=== PATIENT | male | born 1980 | race Caucasian/White ===

== ENCOUNTER 2025-02-07 15:05 | Emergency (ER) | payer SELFPAY ==
[2025-02-07 15:07] VITALS: BP 143/86; PULSE 64; RESP 18; TEMP 36.5; O2SAT 100
--- NOTE | 2025-02-07 15:09 | ED_ITS ---
HPI - Male Genitourinary General Chief complaint: Urogenital-Male Stated complaint: L back pain hx kidney stones Focused HPI: 44 old male presents ER gradual onset of flank pain. States pain began yesterday and has worsened today. States the pain radiates into his left pelvic area. Pain is associated with nausea. His remote history of kidney stones. Denies any difficulty voiding. Denies fevers. GENERAL: Well-appearing, well-nourished, and in acute distress. HEAD: Normocephalic, atraumatic. CHEST: Clear to auscultation. No respiratory distress. HEART: Regular rate and rhythm. NEURO: Alert and oriented x3. Patient screened in triage and initial orders placed. Additional care and disposition to be based upon diagnostic testing and treatment. Related Data Allergies Allergy/AdvReac Type Severity Reaction Status Date / Time codeine Allergy Unknown Verified 12/06/16 05:30 Course Vital Signs Vital signs: Vital Signs Temperature 36.5 C 02/07/25 15:07 Pulse Rate 64 02/07/25 15:07 Respiratory Rate 18 02/07/25 15:07 Blood Pressure 143/86 H 02/07/25 15:07 Pulse Oximetry 100 02/07/25 15:07 Oxygen Delivery Room Air 02/07/25 15:07 Temperature 36.5 C 02/07/25 15:07 Pulse Rate 64 02/07/25 15:07 Respiratory Rate 18 02/07/25 15:07 Blood Pressure 143/86 H 02/07/25 15:07 Pulse Oximetry 100 02/07/25 15:07 Oxygen Delivery Room Air 02/07/25 15:07 Discharge Plan Discharge Clinical Impression: Acute left flank pain Patient Disposition: Elopement After Seen by Prov Patient Language: Malay Follow-up/Referrals: PHYSICIAN,OPTICAL ENGINEERING TECHNICIAN [Primary Care Provider, Internal Medicine]
--- OUTSIDE RECORDS SUMMARY | 2025-02-07 15:45 | XMS_ITS | Clinical Summary ---
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 Ok to use alternative Pro-Air or Ventolin HFA. 8.5 Gram 5 Active benzonatate (TESSALON) 200 mg capsuleIndicati ons:Acute cough Take 1 Capsule (200 mg) by mouth 3 times daily as needed for Cough. 30 Capsule 5 Active Active Problems No known active problems Encounters Date Type Department Care Team Description 11/30/2024 External Device Data [facility] Provider, Abstract 11/30/2024 External Device Data [facility] Provider, Abstract 11/30/2024 External Device Data [facility] Provider, Abstract 11/24/2024 3:45 PM CDT Ancillary Procedure [facility] [address], [place] [id number] Lucy Dove, BEN Respiratory crackles at left lung base; Acute cough 11/24/2024 3:30 PM CDT Office Visit [facility] [address] [place] [id number] Lucy Dove, BEN Pneumonia of left lower lobe due to infectious organism (Primary Dx); Respiratory crackles at left lung base; Acute cough from Last 3 Months Social History Tobacco Use Types Packs/Day Years Used Date Smoking Tobacco: Former Cigarettes Smokeless Tobacco: Never Tobacco Cessation:Counseling Given: Not Answered Sex and Gender Information Value Date Recorded Sex Assigned at Not on file 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 Gender Identity Not on file Sexual Orientation Not on file Last Filed Vital Signs Vital Sign Reading Time Taken Comments Blood Pressure 134/83 11/24/2024 3:27 PM CDT Pulse 88 11/24/2024 3:27 PM CDT Temperature 37 C (98.6 F) 11/24/2024 3:27 PM CDT Respiratory Rate 16 11/24/2024 3:27 PM CDT Oxygen Saturation 96% 11/24/2024 3:27 PM CDT Inhaled Oxygen Concentration - - Weight 97.5 kg (215 lb) 11/24/2024 3:27 PM CDT Height - - Body Mass Index - - Plan of Treatment Health Maintenance Due Date Last Done Comments HEPATITIS B VACCINES (1 of 3 - 19+ 3-dose series) 05/06 HPV VACCINES (1 - 3-dose SCDM series) 2007 INFLUENZA VACCINE (#1) 2024 DTAP/TDAP/TD VACCINES (2 - Td or Tdap) 12/30/2026 Procedures Procedure Name Priority Date/Time Associated Diagnosis Comments XR CHEST PA AND LATERAL 2 VW Stat 11/24/2024 3:55 PM CDT Respiratory crackles at left lung base Acute cough from Last 3 Months Results * XR CHEST PA AND LATERAL 2 VW (11/24/2024 3:55 PM CDT) Anatomical Region Laterality Modality Chest Computed Radiogr aphy 11/24/2024 3:55 PM CDT Impressions 11/24/2024 3:59 PM CDT IMPRESSION: Patchy left lower lobe airspace opacity, best seen on the lateral view and compatible with pneumonia. Recommend follow-up radiographs in 6-8 weeks to document resolution. DICTATION LOCATION: Location 1 - [facility] Narrative 11/24/2024 3:59 PM CDT EXAM: XR CHEST PA AND LATERAL 2 VW DATE: 11/24/2024 3:55 PM HISTORY: Respiratory crackles at left lung base; Acute cough FINDINGS: No prior chest radiograph is available for comparison. Patchy left lower lobe air space opacity best seen on the lateral view compatible with pneumonia. No pleural effusion, pulmonary edema or pneumothorax. Heart size is normal. Procedure Note Shahid Swanson MD - 11/24/2024 EXAM: XR CHEST PA AND LATERAL 2 VW DATE: 11/24/2024 3:55 PM HISTORY: Respiratory crackles at left lung base; Acute cough FINDINGS: No prior chest radiograph is available for comparison. Patchy left lower lobe air space opacity best seen on the lateral view compatible with pneumonia. No pleural effusion, pulmonary edema or pneumothorax. Heart size is normal. IMPRESSION: Patchy left lower lobe airspace opacity, best seen on the lateral view and compatible with pneumonia. Recommend follow-up radiographs in 6-8 weeks to document resolution. DICTATION LOCATION: Location 1 - [facility] Final Result from Last 3 Months
--- NOTE | 2025-02-07 15:58 | PC.NURSE ---
Pt left department
== END 2025-02-07 17:02 | disposition left against medical advice (07) ==
LOC: ANHED 16:56
PROVIDERS: Emergency Provider Nurse Practitioner Family
DX: R10.A2 Flank pain, left side (principal)
CPT/HCPCS: 99281